=== PATIENT | male | born 1950 | race Caucasian/White ===

== ENCOUNTER → 2019-11-14 | Outpatient (CLI) | payer MEDICARE, OTHER ==
[2019-11-14 10:39] LABS: POTASSIUM 4.4 MMOL/L (3.6-5.0); SODIUM 141 MMOL/L (135-145)
[2019-11-14 10:40] LABS: ALANINE AMINOTRANSFERASE 19 U/L (0-55); ALBUMIN 4.3 GM/DL (3.2-4.5); ALKALINE PHOSPHATASE 40 U/L (40-136); BILIRUBIN,TOTAL 0.8 MG/DL (0.1-1.0); BUN/CREATININE RATIO 19; CALCIUM 9.5 MG/DL (8.5-10.1); CARBON DIOXIDE 25 MMOL/L (21-32); CHLORIDE 106 MMOL/L (98-107); CREATININE SERUM 0.88 MG/DL (0.60-1.30); GFR ESTIMATED > 60; GLUCOSE 124 MG/DL (70-105); TOTAL PROTEIN 6.2 GM/DL (6.4-8.2)
[2019-11-14 15:11] LABS: CHOLESTEROL 180 MG/DL (< 200); HDL CHOLESTEROL 62 MG/DL (40-60); TRIGLYCERIDES 61 MG/DL (<150); VLDL CHOLESTEROL 12 MG/DL (5-40)
== END ==
LOC: LAB FS 08:45
PROVIDERS: ATTEND Family Medicine
DX: E78.5 Hyperlipidemia, unspecified (principal)
CPT/HCPCS: 36415; 80053; 80061; 84153; 84154

== ENCOUNTER → 2020-05-14 | Outpatient (CLI) | payer MEDICARE, OTHER ==
[2020-05-14 16:32] VITALS: BP 106/72
--- NOTE | 2020-05-14 16:32 | Cardiology Stress Test Report ---
Stress Test Report Date of Procedure/Referring: Date of Procedure: May 14, 2020 PCP Marissa Hinojosa Admitting Physician Domenica Mariee MD Indications: Dizziness Baseline Heart Rate: 71 Baseline Blood Pressure: Blood Pressure Systolic: 106 Blood Pressure Diastolic: 72 Baseline EKG: Baseline EKG: normal sinus rhythm Summary/Conclusion: Summary: In summary, the patient started exercising with a baseline heart rate, blood pressure and EKG mentioned above Patient was able to exercise for a total of 6minutes on Erwin protocol, METs 7.3 Maximum heart rate 133 Maximum blood pressure 174/69 Stress EKG, Minimal nondiagnostic changes Recovery EKG , Return to baseline Conclusion: 1. Good exercise tolerance for a total of 6 minutes on Erwin protocol, 7.3 METs, achieving 88 percent of maximum expected heart rate 2. Minimal nondiagnostic EKG changes with exercise returned to baseline during recovery 3. No arrhythmia was noted JOSE RAINES MD May 14, 2020 16:32
== END ==
LOC: CARD 13:00
PROVIDERS: ATTEND Physician Assistant
DX: R42 Dizziness and giddiness (principal); N40.0 Benign prostatic hyperplasia without lower urinary tract symptoms; R55 Syncope and collapse; E78.5 Hyperlipidemia, unspecified
CPT/HCPCS: 93017; 93306

== ENCOUNTER → 2020-06-12 | Outpatient (CLI) | payer MEDICARE, OTHER ==
[~2020-06-12] MED LIST: CATHETER FLUSH 10 ML SYR IV PRN; HOLD METFORMIN - RECEIVED CONTRAST 20 ML VIAL IV SCH; IOHEXOL 350 MG/ML 100 ML (OMNIPAQUE 350) VIAL IV ONE; NS 100 ML (IVPB) BAG IV ONE
[2020-06-12 08:59] LABS: ALANINE AMINOTRANSFERASE 12 U/L (0-55); ALBUMIN 4.3 GM/DL (3.2-4.5); ALKALINE PHOSPHATASE 40 U/L (40-136); BILIRUBIN,TOTAL 0.6 MG/DL (0.1-1.0); BUN/CREATININE RATIO 19; CALCIUM 9.3 MG/DL (8.5-10.1); CARBON DIOXIDE 24 MMOL/L (21-32); CHLORIDE 108 MMOL/L (98-107); CREATININE SERUM 0.96 MG/DL (0.60-1.30); GFR ESTIMATED > 60; GLUCOSE 122 MG/DL (70-105); POTASSIUM 4.4 MMOL/L (3.6-5.0); SODIUM 141 MMOL/L (135-145); TOTAL PROTEIN 6.3 GM/DL (6.4-8.2)
--- NOTE | 2020-06-12 10:04 | Diagnostic Imaging Report ---
PROCEDURE: CT abdomen with contrast only. TECHNIQUE: Multiple contiguous axial images were obtained through the abdomen after the administration of intravenous contrast. Auto Exposure Controls were utilized during the CT exam to meet ALARA standards for radiation dose reduction. INDICATION: Intermittent right upper quadrant pain COMPARISON: There are no prior studies available for comparison. The gallbladder is surgically absent. The common bile duct is not abnormally dilated. The duct measures approximately 5 mm near its entry into the head of the pancreas. The proximal biliary tree is not abnormally distended either. The liver is homogeneous and not enlarged. The spleen, pancreas, adrenals, kidneys, aorta, inferior vena cava and portal vein are unremarkable for an acute abnormality. The stomach is not well distended and difficult to assess. There is a moderate amount of fecal material throughout the visualized colon. There is no mass or organomegaly appreciated. The osseous structures are intact. The lung bases are clear. IMPRESSION: 1. There are postsurgical changes consistent with a prior cholecystectomy. The common bile duct is not dilated. 2. There is no acute abnormality of the abdomen identified. Dictated by: Dictated on workstation # [id number]
== END ==
LOC: LAB FS 08:10
PROVIDERS: ATTEND Family Medicine
DX: E78.2 Mixed hyperlipidemia (principal); R10.11 Right upper quadrant pain
CPT/HCPCS: 36415; 74160; 80053

== ENCOUNTER 2022-05-03 12:30 | Outpatient (CLI) | payer MEDICARE, OTHER ==
[~2022-05-03] VITALS: Ht 180.3 cm; Wt 88.0 kg
[2022-05-03] MEDS ORDERED: ATOR20TA66 PO (14:08)
== END 2022-05-03 14:21 | disposition home or self-care (01) ==
LOC: PREOP 12:30
PROVIDERS: ATTEND Surgery
DX: Z01.818 Encounter for other preprocedural examination (principal)

== ENCOUNTER 2022-05-05 09:51 | Day surgery (SDC) | payer MEDICARE, OTHER ==
[~2022-05-05] VITALS: Ht 180 cm; Wt 88.0 kg
[~2022-05-05 09:51] MED LIST changes: +ATOR20TA66 PO; -CATHETER FLUSH 10 ML SYR IV PRN; -HOLD METFORMIN - RECEIVED CONTRAST 20 ML VIAL IV SCH; -IOHEXOL 350 MG/ML 100 ML (OMNIPAQUE 350) VIAL IV ONE; -NS 100 ML (IVPB) BAG IV ONE
[2022-05-05] MEDS ORDERED: LACTATED RINGERS 1,000 ML IV STA (09:55)
[2022-05-05] MEDS ORDERED: LIDOCAINE JELLY 2% 6 ML SYRINGE MM PRN (10:00)
[2022-05-05 10:08] VITALS: BP 118/82
--- NOTE | 2022-05-05 10:38 | Progress Note-Pre Operative ---
Pre-Operative Progress Note Date of Available H&P: May 05, 2022 Date H&P Reviewed: May 05, 2022 Time H&P Reviewed: 10:00 History & Physical: No changes noted Pre-Operative Diagnosis: screening colo NILTON CÁRDENAS MD May 05, 2022 10:38
--- NOTE | 2022-05-05 10:39 | Discharge Inst-Surgical ---
D/C Lap Instructions-AVI Follow Up Activity as tolerated High Fiber Diet 25g or more per day Avoid Alcohol, Caffeine, Spicy Cave and Acid foods. Drink 64 fluid oz or more of fluids per day. Symptoms to Report: Fever over 101 degree F, Nausea/Vomiting If any problems/questions: Contact your physician or go to Emergency Room NILTON CÁRDENAS MD May 05, 2022 10:39
[2022-05-05] MEDS ORDERED: ONDANSETRON 4 MG/2 ML (SDV) Z0FRAN IVP PRN (10:45)
[2022-05-05] MEDS ORDERED: ONDANSETRON 4 MG (ZOFRAN) ORAL DISSOLVE TAB PO PRN (10:45)
[2022-05-05] MEDS ORDERED: PROPOFOL INJECTION 50 ML IV ONE (11:25)
[2022-05-05] MEDS ORDERED: MIDAZOLAM 2 MG/2 ML (VERSED) VIAL ONE (11:25)
[2022-05-05] MEDS ORDERED: GLYCOPYRROLATE 0.2 MG/ML (ROBINUL) 2 ML VIAL ONE (12:16)
[2022-05-05 12:20] VITALS: BP 127/86
[2022-05-05 12:25] VITALS: BP 155/86
[2022-05-05 12:30] VITALS: BP 124/71
--- NOTE | 2022-05-05 12:33 | Progress Note-Post Operative ---
Post-Operative Progess Note Surgeon (s)/Clinical Documentation Nurse (s) Surgeon NILTON CÁRDENAS MD Clinical Documentation Nurse: none Pre-Operative Diagnosis screening colo Post-Operative Diagnosis chronic stage 2-3 ext and int hemorrhoids, large sessile polyp rectum(>1cm)(7cm)anal verge, mild sigmoid diverticulosis, small hepatic flex polyp(3mm). Procedure & Operative Findings Date of Procedure 05/05/22 Procedure Performed/Findings Colonoscopy with snare polypectomy and polypectomy with snare and cautery, valentine bmucosal black ink injection. Anesthesia Type mac Estimated Blood Loss Estimated blood loss (mL): minimal Specimens/Packing Specimens Removed rectal polyp, hepatic flex polyp NILTON CÁRDENAS MD May 05, 2022 12:33
[2022-05-05 12:35] VITALS: BP 124/71
[2022-05-05 13:00] VITALS: BP 118/82
--- NOTE | 2022-05-05 13:01 | Anesthesia-General Post-Op ---
MAC Patient Condition Mental Status/LOC: Same as Preop Cardiovascular: Satisfactory Nausea/Vomiting: Absent Respiratory: Satisfactory Pain: Controlled Complications: Absent Post Op Complications Complications None Follow Up Care/Instructions Patient Instructions None needed. Anesthesiology Discharge Order Discharge Order Patient is doing well, no complaints, stable vital signs, no apparent adverse anesthesia problems. No complications reported per nursing. KATERYNA ZURITA CRNA May 05, 2022 13:01
--- NOTE | 2022-05-05 21:08 | OPERATIVE REPORT ---
DATE OF SERVICE: 05/05/2022 ATTENDING PRIMARY CARE PHYSICIAN: Dr. Domenica Mariee. PREOPERATIVE DIAGNOSIS: Screening colonoscopy. POSTOPERATIVE DIAGNOSES: Chronic between stage II and III external and internal hemorrhoids, sessile polyp of the rectum approximately 7 cm from the anal verge greater than 1 cm in size. Mild sigmoid diverticulosis, small polyp of the hepatic flexure. PROCEDURE: Colonoscopy with snare polypectomy of the rectum and removal of hepatic flexure polyp by biopsy forceps and cautery. SURGEON: Nilton Cárdenas MD. ANESTHESIA: Monitored anesthesia care. ESTIMATED BLOOD LOSS: Minimal. FINDINGS: Chronic between stage II and III external and internal hemorrhoids, sessile polyp of the rectum approximately 7 cm from the anal verge greater than 1 cm in size. Mild sigmoid diverticulosis, small polyp of the hepatic flexure. DISPOSITION: The patient tolerated the procedure well. INDICATIONS: The patient is a 72-year-old male referred over to us for screening colonoscopy. His last colonoscopy was approximately 10 years ago and believes this to be normal. He states that he does notice a small amount of blood on the toilet tissue after having a bowel movement, which he believes to be due to internal hemorrhoidal bleeding. He states that he is otherwise doing well, does not report any major issues with diarrhea nor constipation as well as no recent inadvertent weight loss. He also does not report any family history of colon cancer. DESCRIPTION OF PROCEDURE: The patient was brought to the endoscopy suite, laid in the left lateral decubitus position. After adequate IV pain and sedative medications and monitored anesthesia care, a digital rectal examination was performed. Between stage II and III external and internal hemorrhoids identified with some mild inflammation of the internal hemorrhoidal cushion and no active bleeding. Normal sphincter tone was felt and there were no palpable masses. Prostate gland was palpable and appeared normal. The endoscope was then intubated to the anus, rectum gently insufflated. The endoscope was then advanced through the valves of Rivera of the rectum. At approximately the second valve, a relatively large sessile polyp identified. This was snared and removed with electrocautery in a piecemeal fashion due to the location of the lesion. Greater than 80% of the lesion was resected; however, due to the location of the base behind the valve of Rivera, we were unable to reach this portion. The specimen was sent to pathology and then we proceeded with submucosal injection of black ink proximal and distal to the lesion. The endoscope was then advanced through the sigmoid colon where mild sigmoid diverticulosis identified. We then proceeded through the descending and transverse colon and at the hepatic flexure, a small polyp approximately 3 mm in size identified. This was biopsied and destroyed with forceps and electrocautery with visualization of good hemostasis. The remainder of the ascending colon and cecum were normal. The endoscope was then slowly withdrawn while taking a second look and suctioning of residual air with no additional findings. The patient tolerated the procedure well. We will await the biopsy results; however, due to the incomplete resection of the lesion and the size of the lesion being greater than 1 cm in size, he will likely need to have further excision and in this scenario if no malignancy is identified or even if there is, this may be amenable to transanal resection in which we would refer him to a colorectal specialist. Job ID: [id number] DocumentID: [id number] Dictated Date: 05/05/2022 12:24:27 Sales Development Manager Date: 05/05/2022 21:08:34 Dictated By: NILTON CÁRDENAS MD MTDD
== END 2022-05-05 13:15 | disposition home or self-care (01) ==
LOC: ENDO 09:51
PROVIDERS: ATTEND Surgery
DX: Z12.11 Encounter for screening for malignant neoplasm of colon (principal); D12.8 Benign neoplasm of rectum; K63.5 Polyp of colon; K57.30 Diverticulosis of large intestine without perforation or abscess without bleeding; K64.2 Third degree hemorrhoids; K64.4 Residual hemorrhoidal skin tags

== ENCOUNTER → 2022-11-23 | Outpatient (CLI) | payer MEDICARE, OTHER | LOC: CARDFS 13:39 | PROVIDERS: ATTEND Internal Medicine Cardiovascular Disease | DX: I47.1 Supraventricular tachycardia (principal) | CPT/HCPCS: 93306 ==